=== PATIENT | male | born 1935 | race Caucasian/White ===

== ENCOUNTER → 2017-05-27 | Outpatient (CLI) | payer MEDICARE ==
[~2017-05-27] MED LIST: ALB17R IH; ALB17R INH; ALB6.7R INH; ALBU1.257 IH; ALBU5SOL17 NEB; ALBU8.5H IH; ALPR-459 PO; AMIT-104 PO; AMLO-96 PO; ASMANEXPT IH; ASP81EC PO; ASPI-1441 PO; ASPI-1471 PO; ASPI-816 PO; ASPI81TA94 PO; ATOR20TA22 PO; ATOR20TA65 PO; AZE137NAPT NS; AZEL205.2 NS; AZIT-17 PO; AZIT-18 PO; AZIT500T47 PO; BENZ100C4 PO; BENZ200C15 PO; BIS10S PR; BUDE0.256 IH; BUDE0.5A6 IH; BUDE10.2 IH; BUDE10.2 INH; CEFU500T50 PO; CELE-1 PO; CET10 PO; CHOL500045 PO; CIP500 PO; CLAR-1 PO; CYCL1DRO6 OP; DAR100 PO; DIA5 PO; DIP25 PO; DIPH-618 PO; DOXY-179 PO; ELET20TA2 PO; ENO40I SQ; ENOX30DI4 SQ; ESOM20CA31 PO; FAM20 PO; FEXO1TAB39 PO; FIBER TABLET; FIO PO; FLU IM; FLU180SY9 IM; FLU44R IH; FLU45SYR17 IM; FLU45SYR25 IM ONLY; FLUT16SP19 NS; FLUT16SP20 NS; FORM20VI IH; GABA-549 PO; GING1POW MC; GING500C3 PO; GLUC-125 PO; GLUC-198 PO; GLUC-283 PO; GUAI120L3 PO; GUAI400T18 PO; GUALA600 PO; HYDR-385 PO; HYDR1TAB PO; IBU600 PO; IPRA0.2S31 IH; IPRA0.2S8 IH; IPRA15SP7 NS; IPRA3AMP21 IH; IPRATROPIUM NEB; KETO5DRO50 OP; L.AC1CAP6; LEV500 PO; LEVO500T PO; LEVO5PT PO; LINA290C PO; LISI-353 PO; LOR7.5/325 PO; LUTE20TA PO; MEC25 PO; MECL-205 PO; MECL25TA9 PO; MELO-207 PO; METO-733 PO; METR-160 PO; MOM PO; MON10 PO; MONT10TA PO; MONT10TA4 PO; MUCINEX PO; MULT-1335 PO; MULT-898 PO; MULT1CAP59 PO; NIA500 PO; NIAC1TBM PO; NIAC500C17 PO; NYST15CR33 TP; OASIS EYE; OASIS OP; OLME40TA17 PO; OMEG-11 PO; OMEG500C5 PO; OMEP40CA79 PO; OND4 PO; OXYC-865 PO; OXYGENHOME INH; PAN40 PO; PANT40TA65 PO; PER PO; PHENA200 PO; PNEU0.5D3 IM; POLY17PO25 PO; PRE20 PO; PRED-1 PO; PRED20TA6 PO; PRO25 PO; PRO500 PO; PROB500T31 PO; PSYL0.5235 PO; SAW160CA24 PO; SAW450CA3 PO; SPIR25TA78 PO; TAM4 PO; TAMS0.4C70 PO; TAMS0.4C76 PO; TEARS; TIO18R; TIO18R IH; TIO18R INH; TRAZ-156 PO; TRIA1CAP PO; VALS320T12 PO; VARD20TA31 PO; VITA-192 PO; VITAMIN E PO; WAR5 PO; WASH; [UNRECOGNIZED DRUG - CODE] NEB; [UNRECOGNIZED DRUG - CODE] OP; [UNRECOGNIZED DRUG - CODE] PO; [UNRECOGNIZED DRUG - CODE] PO; [UNRECOGNIZED DRUG - OTHER] NEB; [UNRECOGNIZED DRUG - OTHER] OP
[2017-05-27 09:03] LABS: PLATELET COUNT, AUTOMATED 144 K/uL (150-450)
--- NOTE | 2017-05-27 10:05 | EKG ---
FACILITY: [facility] PATIENT NAME: GRETTA BEGUM : [id number] MR: [id number] V: [id number] EXAM DATE: ORDERING PHYSICIAN: BRIANA BRYANT TECHNOLOGIST: CURTIS Test Reason : CHEST PAIN Blood Pressure : / mmHG Vent. Rate : 061 BPM Atrial Rate : 061 BPM P-R Int : 236 ms QRS Dur : 148 ms QT Int : 458 ms P-R-T Axes : 049 026 034 degrees QTc Int : 461 ms Sinus rhythm with 1st degree AV block with premature atrial complexes Right bundle branch block Abnormal ECG When compared with ECG of 25-FEB-2017 09:00, premature atrial complexes are now present Referred By: ANNETTE Confirmed By:
--- NOTE | 2017-05-27 10:12 | RADIOLOGY IMAGING REPORT ---
FACILITY: [facility] PATIENT NAME: Rylan Villasenor : 1935 MR: [id number] V: [id number] EXAM DATE: ORDERING PHYSICIAN: BRIANA BRYANT TECHNOLOGIST: Location: [facility] Patient: Rylan Villasenor : 1935 Visit/Account:[id number] Date of Sevice: 05/27/2017 Exam type: CHEST PA AND LAT History: Chest pain since Friday, cough, trouble breathing, asthma Comparison: February 25, 2017. Findings: The lungs are free of acute effusions, infiltrates or edema. There is no evidence of a pneumothorax or pneumomediastinum. There is mild right apical pleural thickening unchanged. The cardiac silhouet te is normal in size. There are spondylotic changes of the thoracic spine similar to the prior study . IMPRESSION: 1. No acute cardiopulmonary process seen Report Dictated By: Earlene Zarco MD at 05/27/2017 10:06 AM Report E-Signed By: Earlene Zarco MD at 05/27/2017 10:07 AM WSN:[email or web address]
== END ==
LOC: RESP 08:35
PROVIDERS: ATTEND Internal Medicine
DX: R07.9 Chest pain, unspecified (principal); I10 Essential (primary) hypertension; J45.909 Unspecified asthma, uncomplicated; R94.31 Abnormal electrocardiogram [ECG] [EKG]
CPT/HCPCS: 36415; 71046; 82040; 82247; 82310; 82374; 82435; 82565; 82947; 84075; 84132; 84155; 84295; 84450; 84460; 84484; 84520; 85025; 85651; 86140

== ENCOUNTER → 2017-06-17 | Outpatient (CLI) | payer MEDICARE ==
[~2017-06-17] MED LIST changes: +AZEL23SP NS; +REGADENOSON 0.4 MG/5 ML SYR ONE
--- NOTE | 2017-06-17 15:50 | RADIOLOGY IMAGING REPORT ---
FACILITY: [facility] PATIENT NAME: Rylan Villasenor : 1935 MR: [id number] V: [id number] EXAM DATE: ORDERING PHYSICIAN: BRIANA BRYANT TECHNOLOGIST: Location: [facility] [place] Patient: Rylan Villasenor : 1935 Visit/Account:[id number] Date of Sevice: 06/17/2017 EXAMINATION: Single isotope SPECT imaging with regadenoson infusion and gated SPECT imaging. DATE OF EXAMINATION: 06/17/2017. DATE OF INTERPRETATION: 06/17/2017. REQUESTING PHYSICIAN: BRIANA BRYANT. INDICATION: The patient is a 81-year-old male evaluated for chest pain. PROCEDURE: After informed consent the patient received an intravenous injection of 14.4 mCi of Tc-99 m sestamibi followed at an appropriate time interval by rest imaging. The patient then subsequently received an intravenous infusion of 0.4 mg of regadenoson per protocol without complication. Resting heart rate was 59 bpm with a peak heart rate of 69 bpm. Blood pressure at rest was 160 / 73 and fol lowing infusion was 164 / 70. Baseline EKG demonstrates sinus rhythm with right bundle branch block. There were no EKG changes of ischemia following infusion. Symptoms were nonspecific. The patient then received an intravenous injection of 31.5 mCi of Tc-99m sestamibi followed by stress imaging. RAW DATA: Examination of the summed raw data revealed a fair quality study. MYOCARDIAL PERFUSION: The tomographic images demonstrate normal perfusion rest and stress. GATED IMAGES: The gated images demonstrate normal regional wall motion and thickening, LVEF 70%. IMPRESSION: 1. Nondiagnostic Lexiscan stress ECG 2. Normal myocardial perfusion scan. 3. Normal LV systolic function; LVEF 70%. Report Dictated By: Darian Payne MD at 06/17/2017 3:43 PM Report E-Signed By: Darian Payne MD at 06/17/2017 3:46 PM WSN:[id number]
== END ==
LOC: NUC 01:14
PROVIDERS: ATTEND Internal Medicine
DX: I45.19 Other right bundle-branch block (principal); I44.0 Atrioventricular block, first degree; I49.3 Ventricular premature depolarization
CPT/HCPCS: 78452; 93017; A9500; J2785

== ENCOUNTER → 2017-12-02 | Outpatient (CLI) | payer MEDICARE ==
[~2017-12-02] MED LIST changes: -ASPI-816 PO; +ASPI-870 PO; +AZIT-1 PO; +BUDE10.25 IH; -REGADENOSON 0.4 MG/5 ML SYR ONE; -SPIR25TA78 PO; +SPIR25TA80 PO; -TRAZ-156 PO; +TRAZ50TA34 PO
[2017-12-02 09:00] LABS: PLATELET COUNT, AUTOMATED 136 K/uL (150-450)
[2017-12-02 09:50] LABS: LDL CHOLESTEROL 55 mg/dl
== END ==
LOC: LAB 08:44
PROVIDERS: ATTEND Internal Medicine
DX: E78.00 Pure hypercholesterolemia, unspecified (principal); I10 Essential (primary) hypertension; J45.909 Unspecified asthma, uncomplicated; G47.33 Obstructive sleep apnea (adult) (pediatric); R79.89 Other specified abnormal findings of blood chemistry; C61 Malignant neoplasm of prostate
CPT/HCPCS: 36415; 81001; 82040; 82247; 82306; 82310; 82374; 82435; 82465; 82565; 82947; 83718; 84075; 84132; 84153; 84155; 84295; 84443; 84450; 84460; 84478; 84520; 85025

== ENCOUNTER → 2017-12-05 | Outpatient (CLI) | payer MEDICARE | LOC: LAB 13:04 | PROVIDERS: ATTEND Internal Medicine | DX: E83.52 Hypercalcemia (principal) | CPT/HCPCS: 36415; 83970 ==

== ENCOUNTER → 2018-01-27 | Outpatient (CLI) | payer MEDICARE ==
[~2018-01-27] MED LIST changes: +AMLO-111 PO; -AMLO-96 PO; +FLU180SY11 IM
[2018-01-27 09:10] LABS: PLATELET COUNT, AUTOMATED 142 K/uL (150-450)
== END ==
LOC: LAB 08:52
PROVIDERS: ATTEND Internal Medicine Pulmonary Disease
DX: J45.909 Unspecified asthma, uncomplicated (principal)
CPT/HCPCS: 36415; 82785; 85025

== ENCOUNTER → 2018-02-04 | Outpatient (CLI) | payer MEDICARE ==
[~2018-02-04] MED LIST changes: +METH4TAB66 PO
--- NOTE | 2018-02-04 16:23 | EKG ---
[place] [facility] [place]IENT NAME: GRETTA BEGUM : [id number] MR: [id number] V: [id number] EXAM DATE: ORDERING PHYSICIAN: BRIANA BRYANT TECHNOLOGIST: ANITA Test Reason : CHEST PAIN Blood Pressure : / mmHG Vent. Rate : 059 BPM Atrial Rate : 059 BPM P-R Int : 222 ms QRS Dur : 150 ms QT Int : 460 ms P-R-T Axes : 043 030 043 degrees QTc Int : 455 ms Sinus bradycardia with 1st degree AV block with premature atrial complexes Right bundle branch block Abnormal ECG When compared with ECG of 27-MAY-2017 08:30, No significant change was found Confirmed by BRIANA BRYANT ([id number]) on 02/05/2018 9:10:50 AM Referred By: CLAYTON Confirmed By:BRIANA BRYANT
== END ==
LOC: LAB 15:07
PROVIDERS: ATTEND Internal Medicine
DX: I44.0 Atrioventricular block, first degree (principal); R94.31 Abnormal electrocardiogram [ECG] [EKG]; R07.82 Intercostal pain

== ENCOUNTER 2018-03-10 08:46 | Emergency (ER) | payer MEDICARE ==
[~2018-03-10 08:46] MED LIST changes: -METR-160 PO; +METR500T54 PO
[2018-03-10 09:36] LABS: PLATELET COUNT, AUTOMATED 141 K/uL (150-450)
--- NOTE | 2018-03-10 09:39 | ER Report ---
History and Physical Time Seen By MD: 09:00 Hx. of Stated Complaint: CHST PAIN HPI/ROS CHIEF COMPLAINT: Shortness of breath and chest pain HISTORY OF PRESENT ILLNESS: Patient is a 82-year-old male with history of COPD, on CPAP at night, on intermittent O2 2 L nasal cannula at home. Has been using O2 and CPAP increasingly the past 2 days. He presented to his primary doctor for an allergy shot and reported that he has had some chest pain and was sent here for further evaluation. Patient reports that these symptoms are similar to those which he was evaluated for between 3 and 4 weeks ago, at which time he was thought to have COPD exacerbation, was treated with prednisone. Symptoms initially improved but of worsened over the past 2 days. Symptoms are similar to his prior COPD exacerbations. Patient has cough with clear sputum without change in color. He has some chills without fever. Chest pain radiates down the left chest under left breast. It last for seconds at a time, never more than 30 seconds. It is not specifically associated with the shortness of breath though patient does note it sometimes when he is on CPAP. Patient notes that she well shortness of breath is worse on exertion and lying back, the chest pain is not associated with exertion or recumbency. Patient has used his albuterol increasingly over the past 2 days with some relief. Patient denies ongoing tobacco use and quit 40 years ago. Incomplete review of systems patient also notes proximal bilateral thigh pain worse on right than left that has been intermittent and ongoing. He denies recent travel, leg swelling, history of DVT. REVIEW OF SYSTEMS: Constitutional: above Eyes: No discharge. ENT: No sore throat. Cardiovascular: above Respiratory: above Gastrointestinal: No abdominal pain, no vomiting. Genitourinary: no change in urination Musculoskeletal: No back pain. Skin: No rashes. Neurological: No headache. Remainder of the 14 system rev: Yes Allergies: Coded Allergies: Penicillins (Verified Allergy, Mild, PASSED OUT-50-6O YRS AGO, 03/10/18) Home Meds Active Scripts Albuterol Sulfate 90 Mcg/Act (PROAIR HFA 90 MCG/ACT) 8.5 Gm Hfa.aer.ad, 1 VIAL IH DAILY PRN for SHORTNESS OF BREATH for 90 Days, #90 INHALER 3 Refills Prov:SERGIO MONTE MD 02/13/18 Montelukast Sodium (SINGULAIR) 10 Mg Tablet, 1 TAB PO QDAY, #90 TAB 4 Refills Prov:BRIANA KOHLI MD 01/15/18 Pantoprazole Sodium (PANTOPRAZOLE SODIUM) 40 Mg Tablet.dr, 1 TAB PO QDAY, #90 TAB.SR 4 Refills Prov:BRIANA KOHLI MD 01/01/18 Budesonide (BUDESONIDE) 0.5 Mg/2 Ml Ampul.neb, 0.5 MG IH BID, #180 ML 3 Refills Prov:BRIANA KOHLI MD 11/26/17 Formoterol Fumarate (PERFOROMIST) 20 Mcg/2 Ml Vial.neb, 1 INH IH BID, #180 VIAL 3 Refills Prov:BRIANA KOHLI MD 11/26/17 Hydrocodone Bit/Acetaminophen (HYDROCODON-ACETAMINOPHEN 5-325) 1 Each Tablet, 1 TAB PO TID PRN for pain, #90 TAB 0 Refills REFILL 02/10/2018 Prov:BRIANA KOHLI MD 11/26/17 Budesonide/Formoterol Fumarate (SYMBICORT 80-4.5 MCG INHALER) 10.2 Gm Hfa.aer.ad, 2 PUFF IH BID, #1 INHALATION 2 Refills Prov:BRIANA KOHLI MD 11/11/17 Meclizine Hcl (MECLIZINE HCL) 25 Mg Tablet, 1 TAB PO BID PRN for dizziness, #180 TAB 3 Refills Prov:BRIANA KOHLI MD 10/29/17 Trazodone Hcl (TRAZODONE HCL) 50 Mg Tablet, 1-2 TAB PO QHS PRN for difficulty sleeping, #30 TAB 6 Refills Prov:BRIANA KOHLI MD 10/06/17 Atorvastatin Calcium (ATORVASTATIN CALCIUM) 20 Mg Tablet, 1 TAB PO QDAY, #90 TAB 4 Refills Prov:BRIANA KOHLI MD 08/20/17 Azelastine/Fluticasone (DYMISTA NASAL SPRAY) 23 Gm [place].pump, 1-2 SPRAY NS QDAY, #3 BOTTLE 5 Refills Prov:BRIANA KOHLI MD 06/04/17 Lisinopril/Hydrochlorothiazide (LISINOPRIL-HCTZ 20-12.5 MG TAB) 1 Each Tablet, 1 EACH PO BID, #180 TAB 3 Refills Prov:BRIANA KOHLI MD 04/02/17 Tamsulosin Hcl (TAMSULOSIN HCL) 0.4 Mg Cap.er.24h, 1 CAP PO BID, #180 CAP 1 Refill Prov:BRIANA KOHLI MD 03/12/17 Tiotropium [place] (SPIRIVA) 18 Mcg/Cap Inh, 1 PUFF INH DAILY, #3 INH 4 Refills Prov:BRIANA KOHLI MD 07/24/16 Oxygen (OXYGEN) Inha, 2 L INH QDAY, #2 L Prov:AVIVA MOREIRA DNP, OBIEE OBIA SOLUTION ARCHITECT-BC 07/03/15 Fluticasone Prop 50 Mcg Ns (FLONASE 50 MCG NS) 16 Gm [place].susp, 2 SPRAYS NS QDAY, #1 CON 6 Refills Prov:WALT ROYAL MD 07/15/14 Reported Medications Polyethylene Glycol 3350 (MIRALAX) 17 Gm Powd.pack, 17 GM PO QDAY PRN for CONSTIPATION, PKT 04/22/17 Linaclotide (LINZESS) 290 Mcg Capsule, 290 MCG PO PRN, CAPSULE 04/10/17 Lutein (LUTEIN) 20 Mg Tablet, 20 MG PO DAILY 05/08/15 Psyllium Husk (FIBER) 0.52 Gm Capsule, 0.52 GM PO TID, CAPSULE 05/08/15 Aspirin (ASPIRIN) 81 Mg Tab.chew, 81 MG PO QDAY, TAB.CHEW 05/08/15 Cyclosporine (RESTASIS) 1 Each [place], 1 EACH OP DAILY for dry eyes 12/30/13 Discontinued Scripts Methylprednisolone (METHYLPREDNISOLONE) 4 Mg Tab.ds.pk, 4 MG PO DIRECTED, #1 DOSE-PACK Prov:BRIANA KOHLI MD 02/04/18 Reviewed Nurses Notes: Yes Old Medical Records Reviewed: Yes Hx Smoking: No (40 YRS-1 PPD, QUIT IN 1991) Smoking Status: Former Smoker Hx Substance Use Disorder: No Hx Alcohol Use: No (NONE FOR 15 YRS) Constitutional Vital Sign - Last 24 Hours 03/10/18 03/10/18 03/10/18 03/10/18 08:46 08:51 08:54 09:00 Temp 97.8 Pulse 63 58 Resp 16 B/P (MAP) 172/87 (115) 172/87 153/77 (102) Pulse Ox 90 O2 Delivery Room Air 03/10/18 03/10/18 03/10/18 03/10/18 09:15 09:16 09:30 09:46 Pulse 61 58 Resp 15 16 B/P (MAP) 173/84 (113) 164/89 (114) Pulse Ox 90 89 03/10/18 03/10/18 10:00 10:37 Pulse 54 Resp 14 B/P (MAP) 155/73 (100) Physical Exam General Appearance: [The patient is alert, has no immediate need for airway protection and no signs of toxicity.] [ ] Pupils equal and round no pallor or injection. ENT, Mouth: Mucous membranes are moist. Respiratory: end expiratory wheeze, otherwise CTAB Cardiovascular: Regular rate and rhythm. no m/r/g Gastrointestinal: Abdomen is soft and non tender, no masses, bowel sounds normal. Neurological: alert, oriented, moves all ext Skin: Warm and dry, no rashes. Musculoskeletal: Extremities with bilateral proxmial mid thigh mild ttp, R > L nonswollen and have full range of motion. DIFFERENTIAL DIAGNOSIS: After history and physical exam differential diagnosis was considered for ACS, VTE, COPD, pneumonia, aortic dissection, or other emergent etiology. Medical Decision Making Data Points Result Diagram: 03/10/18 0853 03/10/18 0853 Laboratory Hematology Test 03/10/18 08:53 Red Blood Count 5.04 M/uL (4.00-5.60) Mean Corpuscular Volume 93.8 fL (80.0-96.0) Mean Corpuscular Hemoglobin 32.7 pg (26.0-33.0) Mean Corpuscular Hemoglobin Concent 34.8 g/dL (32.0-36.0) Red Cell Distribution Width 14.0 % (11.5-14.5) Mean Platelet Volume 9.7 fL (7.2-11.1) Neutrophils (%) (Auto) 66.1 % (39.4-72.5) Lymphocytes (%) (Auto) 21.0 % (17.6-49.6) Monocytes (%) (Auto) 9.5 % (4.1-12.4) Eosinophils (%) (Auto) 2.5 % (0.4-6.7) Basophils (%) (Auto) 0.9 % (0.3-1.4) Nucleated RBC Relative Count (auto) 0.1 /100WBC Neutrophils # (Auto) 3.9 K/uL (2.0-7.4) Lymphocytes # (Auto) 1.2 K/uL (1.3-3.6) Monocytes # (Auto) 0.6 K/uL (0.3-1.0) Eosinophils # (Auto) 0.1 K/uL (0.0-0.5) Basophils # (Auto) 0.1 K/uL (0.0-0.1) Nucleated RBC Absolute Count (auto) 0.00 K/uL Sodium Level 141 mmol/L (137-145) Potassium Level 4.1 mmol/L (3.5-5.0) Chloride Level 101 mmol/L (98-107) Carbon Dioxide Level 28 mmol/L (22-30) Blood Urea Nitrogen 20 mg/dl (9-21) Creatinine 0.90 mg/dl (0.66-1.25) Glomerular Filtration Rate Calc > 60.0 Random Glucose 108 mg/dl (75-110) Calcium Level 10.4 mg/dl (8.4-10.2) Total Bilirubin 1.0 mg/dl (0.2-1.3) Aspartate Amino Transf (AST/SGOT) 39 U/L (0-35) Alanine Aminotransferase (ALT/SGPT) 38 U/L (0-56) Alkaline Phosphatase 51 U/L (0-126) Troponin I < 0.012 ng/ml Total Protein 8.0 g/dl (6.3-8.2) Albumin 4.5 g/dl (3.5-5.0) Lipase 118 U/L (23-300) Chemistry Test 03/10/18 08:53 White Blood Count 5.9 k/uL (4.5-11.0) Red Blood Count 5.04 M/uL (4.00-5.60) Hemoglobin 16.5 g/dL (14.0-18.0) Hematocrit 47.3 % (42.0-52.0) Mean Corpuscular Volume 93.8 fL (80.0-96.0) Mean Corpuscular Hemoglobin 32.7 pg (26.0-33.0) Mean Corpuscular Hemoglobin Concent 34.8 g/dL (32.0-36.0) Red Cell Distribution Width 14.0 % (11.5-14.5) Platelet Count 141 K/uL (150-450) Mean Platelet Volume 9.7 fL (7.2-11.1) Neutrophils (%) (Auto) 66.1 % (39.4-72.5) Lymphocytes (%) (Auto) 21.0 % (17.6-49.6) Monocytes (%) (Auto) 9.5 % (4.1-12.4) Eosinophils (%) (Auto) 2.5 % (0.4-6.7) Basophils (%) (Auto) 0.9 % (0.3-1.4) Nucleated RBC Relative Count (auto) 0.1 /100WBC Neutrophils # (Auto) 3.9 K/uL (2.0-7.4) Lymphocytes # (Auto) 1.2 K/uL (1.3-3.6) Monocytes # (Auto) 0.6 K/uL (0.3-1.0) Eosinophils # (Auto) 0.1 K/uL (0.0-0.5) Basophils # (Auto) 0.1 K/uL (0.0-0.1) Nucleated RBC Absolute Count (auto) 0.00 K/uL Glomerular Filtration Rate Calc > 60.0 Calcium Level 10.4 mg/dl (8.4-10.2) Total Bilirubin 1.0 mg/dl (0.2-1.3) Aspartate Amino Transf (AST/SGOT) 39 U/L (0-35) Alanine Aminotransferase (ALT/SGPT) 38 U/L (0-56) Alkaline Phosphatase 51 U/L (0-126) Troponin I < 0.012 ng/ml Total Protein 8.0 g/dl (6.3-8.2) Albumin 4.5 g/dl (3.5-5.0) Lipase 118 U/L (23-300) EKG/Imaging EKG Interpretation 12 lead EKG: Rhythm: normal sinus rhythm - rate 59 [place]: normal QRS: RBBB ST segments: normal No change from 02/05. No STEMI Monitor Interpretation: Normal Sinus Rhythm ED Course/Re-evaluation ED Course Patient presents with shortness of breath that he states is similar prior COPD exacerbations. Was sent here from his primary doctor who, when I contacted, stated that he was too busy and could not see patient this morning when patient noted he had chest pain while getting assessed for an allergy shot. Patient's chest pain is similar prior events, is nonexertional and does not last more than 30 seconds. Low pretest probably for ACS today and EKG and troponin unremarka ble. Patient improved significant after neb in ED. He was last placed on a steroid burst. At this point we'll place him on a steroid taper. Considered antibiotics but no change in sputum and no other signs of infection. After ED evaluation patient feels significantly improved and comfortable to go home. Of note his 90% O2 sat on room air is likely his baseline. Decision to Disposition Date: Mar 10, 2018 Decision to Disposition Time: 10:54 Depart Departure Latest Vital Signs Vital Signs Date Time Temp Pulse Resp B/P (MAP) Pulse Ox O2 Delivery O2 Flow Rate FiO2 03/10/18 10:37 54 14 03/10/18 10:00 155/73 (100) 03/10/18 09:46 89 03/10/18 08:54 97.8 Room Air Impression: Primary Impression: COPD exacerbation Condition: Improved Disposition: HOME OR SELF-CARE Referrals: BRIANA KOHLI MD (PCP) 1 Day New Scripts Prednisone 10 Mg Tab (PREDNISONE 10 MG TAB) 10 Mg Tab.ds.pk 10 MG PO DAILY for 12 Days, #30 TAB Take 4 tabs for 3 days, then 3 tabs for 3 days, then 2 tabs for 3 days, then 1 tab for 3 days Prov: MUKESH TSE MD 03/10/18 Patient Instructions: COPD (Chronic Obstructive Pulmonary Disease) (ED) Additional Instructions: Please return immediately for worsening symptoms or any concerns. Dr. Kohli would like you to call his office tomorrow to arrange follow up. MUKESH TSE MD Mar 10, 2018 09:39
--- NOTE | 2018-03-10 10:01 | EKG ---
FACILITY: [facility] - [place] PATIENT NAME: GRETTA BEGUM : [id number] MR: [id number] V: [id number] EXAM DATE: ORDERING PHYSICIAN: MUKESH TSE TECHNOLOGIST: NAIN Test Reason : CP Blood Pressure : / mmHG Vent. Rate : 059 BPM Atrial Rate : 059 BPM P-R Int : 228 ms QRS Dur : 150 ms QT Int : 462 ms P-R-T Axes : 043 016 030 degrees QTc Int : 457 ms Sinus bradycardia with 1st degree AV block Right bundle branch block Abnormal ECG When compared with ECG of 04-FEB-2018 14:13, premature atrial complexes are no longer present Confirmed by ANGEL FERRERA ([id number]) on 03/10/2018 6:02:39 PM Referred By: DEDRICK Confirmed By:ANGEL FERRERA
--- NOTE | 2018-03-10 10:05 | RADIOLOGY IMAGING REPORT ---
FACILITY: [facility] PATIENT NAME: Rylan Villasenor : 1935 MR: [id number] V: [id number] EXAM DATE: ORDERING PHYSICIAN: MUKESH TSE TECHNOLOGIST: Location: [facility] [place] Patient: Rylan Villasenor : 1935 Visit/Account:[id number] Date of Sevice: 03/10/2018 CHEST PA AND LAT INDICATION: shortness of breath COMPARISON: May 27, 2017 FINDINGS: Heart size within normal limits. There is no focal infiltrate or lobar consolidation. There is no pneumothorax or pleural effusion. IMPRESSION: 1. No acute cardiopulmonary process. Report Dictated By: Ariel Mckeon at 03/10/2018 10:01 AM Report E-Signed By: Ariel Mckeon at 03/10/2018 10:02 AM WSN:[email or web address]
[2018-03-10] MEDS ORDERED: ALBUTEROL/IPRATROPIUM 3 ML NEB NEB ONE (10:25)
[2018-03-10] MEDS ORDERED: PRED-420 PO (10:59)
[2018-03-10 11:00] VITALS: BP 140/79
--- NOTE | 2018-03-10 11:01 | RADIOLOGY IMAGING REPORT ---
[place] [facility] [place] Rylan Villasenor : 1935 MR: [id number] V: [id number] EXAM DATE: ORDERING PHYSICIAN: MUKESH TSE TECHNOLOGIST: Location: [facility] Patient: Rylan Villasenor : 1935 Visit/Account:[id number] Date of Sevice: 03/10/2018 Bilateral lower extremity duplex venous ultrasound Indication: Leg swelling Comparison: None Available Findings: Duplex Doppler and color flow imaging was performed. The bilateral common femoral, femoral , and popliteal veins are all patent and compressible with normal Doppler wave forms. There are norm al responses to augmentation. The proximal greater saphenous veins are also normal. Impression: 1. No evidence of deep venous thrombosis of the bilateral lower extremities. Report Dictated By: Ariel Mckeon at 03/10/2018 10:55 AM Report E-Signed By: Ariel Mckeon at 03/10/2018 10:56 AM WSN:[email or web address]
== END 2018-03-10 11:15 | disposition home or self-care (01) ==
LOC: ER 09:11
DX: J44.1 Chronic obstructive pulmonary disease with (acute) exacerbation (principal); Z87.891 Personal history of nicotine dependence; I44.0 Atrioventricular block, first degree; R94.31 Abnormal electrocardiogram [ECG] [EKG]; I45.10 Unspecified right bundle-branch block
CPT/HCPCS: 71046; 83690; 84484; 85025; 93005; 93970; 94640; 99284; J7620; 82040; 82247; 82310; 82374; 82435; 82565; 82947; 84075; 84132; 84155; 84295; 84450; 84460; 84520

== ENCOUNTER 2018-04-29 07:42 | Outpatient (RCR) | payer MEDICARE ==
[2018-04-28 09:24] LABS: PLATELET COUNT, AUTOMATED 140 K/uL (150-450)
--- NOTE | 2018-04-28 09:30 | EKG ---
[place] [facility] [place] GRETTA BEGUM : [id number] MR: [id number] V: [id number] EXAM DATE: ORDERING PHYSICIAN: BRIANA BRYANT TECHNOLOGIST: KARI Test Reason : CHESTPAIN Blood Pressure : / mmHG Vent. Rate : 057 BPM Atrial Rate : 057 BPM P-R Int : 250 ms QRS Dur : 152 ms QT Int : 450 ms P-R-T Axes : 063 033 028 degrees QTc Int : 438 ms Sinus bradycardia with 1st degree AV block with premature atrial complexes Right bundle branch block Abnormal ECG When compared with ECG of 10-MAR-2018 09:03, premature atrial complexes are now present Confirmed by BRIANA BRYANT ([id number]) on 04/28/2018 4:34:45 PM Referred By: CLAYTON Confirmed By:BRIANA BRYANT
[~2018-04-29 07:42] MED LIST changes: -AMLO-111 PO; +AMLO-125 PO; +LEVO750T27 PO; +LISI20TA29 PO; +METR500T15 PO; -METR500T54 PO; +PRED-420 PO
--- NOTE | 2018-04-29 17:27 | RADIOLOGY IMAGING REPORT ---
[place] [facility] [place] NAME: Rylan Villasenor : 1935 MR: [id number] V: [id number] EXAM DATE: ORDERING PHYSICIAN: BRIANA BRYANT TECHNOLOGIST: Location: [facility] [place] Patient: Rylan Villasenor : 1935 Visit/Account:[id number] Date of Sevice: 04/29/2018 CT CTA CHEST W & W/O CON HISTORY: Chest pain ADDITIONAL HISTORY: Cough, shortness of breath, history of smoking TECHNIQUE: CTA chest with intravenous contrast. Axial imaging acquired following administration of IV contrast timed for maximum opacification of the pulmonary arterial vasculature. Slab 3-D MIP romain nstructed images were also created for further evaluation and interpretation. Reconstruction of the [facility] data set includes multiplanar 2-D in the sagittal and coronal planes and 3-D reconstructed michela nal slab MIP series. 3-D images were created by the technologist.Dose Lowering Technique One of the following dose optimization techniques was utilized in the performance of this exam: Autom ated exposure control; adjustment of the mA and/or kV according to the patient's size; or use of an i terative reconstruction technique. Specific details can be referenced in the facility's radiology C T exam operational policy. CONTRAST: 75 mL Isovue-370 COMPARISON: September 08, 2008 FINDINGS: Lungs/pleura: There is a small amount of pleural parenchymal scarring in the pulmonary apices that h as remained stable Heart/vessels: There mild to moderate atherosclerotic calcifications of the thoracic aorta and branc h vessels including the coronary arteries. There is no evidence of pulmonary emboli Mediastinum/lymph nodes: Negative. 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
[2018-05-04] MEDS ORDERED: ALBU2.5V36 INH (13:30)
[2018-05-09] MEDS ORDERED: PRED20TA6 PO (14:33)
[2018-05-12] MEDS ORDERED: IPRA3AMP10 IH (09:00)
== END 2018-04-29 18:00 | disposition home or self-care (01) ==
LOC: EDSTATUS 07:42 → LAB 07:42
PROVIDERS: ATTEND Internal Medicine
DX: I36.1 Nonrheumatic tricuspid (valve) insufficiency (principal); I51.7 Cardiomegaly; R94.31 Abnormal electrocardiogram [ECG] [EKG]
CPT/HCPCS: 36415; 71275; 83735; 84443; 85025; 85379; C8929; Q9957; 82040; 82247; 82310; 82374; 82435; 82565; 82947; 84075; 84132; 84155; 84295; 84450; 84460; 84520; 93306

== ENCOUNTER → 2018-05-14 | Outpatient (CLI) | payer MEDICARE ==
[~2018-05-14] MED LIST changes: +ALBU2.5V36 INH; +IPRA3AMP10 IH
== END ==
LOC: RESP 00:57
PROVIDERS: ATTEND Internal Medicine Pulmonary Disease
DX: J98.4 Other disorders of lung (principal)
CPT/HCPCS: 94060; 94726; 94729

== ENCOUNTER 2018-06-08 17:38 | Emergency (ER) | payer MEDICARE ==
--- NOTE | 2018-06-08 17:43 | ER Report ---
History and Physical Time Seen By MD: 17:43 HPI/ROS CHIEF COMPLAINT: Chest pressure HISTORY OF PRESENT ILLNESS: [id number] male who presents emergency department for chest pressure. Patient states at 11:00 this morning while laying in bed he developed left-sided chest pressure, since then he developed aches, chills, nausea and vomiting, diarrhea. His had similar symptoms however she is resolving. Patient is also on continuous oxygen for COPD. No rashes. No headaches. Denies sore throat. REVIEW OF SYSTEMS: Constitutional: As above. Eyes: No discharge. ENT: No sore throat. Cardiovascular: As above. Respiratory: As above. Gastrointestinal: No abdominal pain, no vomiting. Genitourinary: No hematuria. Musculoskeletal: No back pain. Skin: No rashes. Neurological: No headache. Allergies: Coded Allergies: Penicillins (Verified Allergy, Mild, PASSED OUT-50-6O YRS AGO, 05/09/18) Home Meds Active Scripts Prednisone (PREDNISONE) 20 Mg Tablet, 40 MG PO QDAY, #17 TAB 40mg once a day for 4 days. 30mg once a day for 3 days. 20mg once a day for 3 days. 10mg once a day for 2 days. Prov:ASHISH FULTON [employer] SUPERVISOR-BC 06/08/18 Albuterol Sulfate 90 Mcg/Act (PROAIR HFA 90 MCG/ACT) 8.5 Gm Hfa.aer.ad, 1 PUFF IH QID PRN for SHORTNESS OF BREATH for 90 Days, #1 INHALER 3 Refills Prov:BRIANA KOHLI MD 05/29/18 Albuterol Sulfate 0.083% (ALBUTEROL SULFATE 0.083%) 2.5 Mg/3 Ml Vial.neb, 2.5 MG INH QID PRN for DYSPNEA, #360 INH 3 Refills Prov:BRIANA KOHLI MD 05/18/18 Lisinopril (LISINOPRIL) 20 Mg Tablet, 20 MG PO BID, #180 TAB 3 Refills Prov:BRIANA KOHLI MD 04/28/18 Trazodone Hcl (TRAZODONE HCL) 50 Mg Tablet, 1-2 TAB PO QHS PRN for difficulty sleeping, #30 TAB 6 Refills Prov:BRIANA KOHLI MD 12/21/18 Hydrocodone Bit/Acetaminophen (HYDROCODON-ACETAMINOPHEN 5-325) 1 Each Tablet, 1 TAB PO TID PRN for pain, #90 TAB 0 Refills refill 05/25/2018 Prov:BRIANA KOHLI MD 03/23/18 Montelukast Sodium (SINGULAIR) 10 Mg Tablet, 1 TAB PO QDAY, #90 TAB 4 Refills Prov:BRIANA KOHLI MD 01/15/18 Pantoprazole Sodium (PANTOPRAZOLE SODIUM) 40 Mg Tablet.dr, 1 TAB PO QDAY, #90 TAB.SR 4 Refills Prov:BRIANA KOHLI MD 01/01/18 Budesonide (BUDESONIDE) 0.5 Mg/2 Ml Ampul.neb, 0.5 MG IH BID, #180 ML 3 Refills Prov:BRIANA KOHLI MD 11/26/17 Formoterol Fumarate (PERFOROMIST) 20 Mcg/2 Ml Vial.neb, 1 INH IH BID, #180 VIAL 3 Refills Prov:BRIANA KOHLI MD 11/26/17 Meclizine Hcl (MECLIZINE HCL) 25 Mg Tablet, 1 TAB PO BID PRN for dizziness, #180 TAB 3 Refills Prov:BRIANA KOHLI MD 10/29/17 Atorvastatin Calcium (ATORVASTATIN CALCIUM) 20 Mg Tablet, 1 TAB PO QDAY, #90 TAB 4 Refills Prov:BRIANA KOHLI MD 08/20/17 Azelastine/Fluticasone (DYMISTA NASAL SPRAY) 23 Gm Kegley.pump, 1-2 SPRAY NS QDAY, #3 BOTTLE 5 Refills Prov:BRIANA KOHLI MD 06/04/17 Tamsulosin Hcl (TAMSULOSIN HCL) 0.4 Mg Cap.er.24h, 1 CAP PO BID, #180 CAP 1 Refill Prov:BRIANA KOHLI MD 03/12/17 Tiotropium [place] (SPIRIVA) 18 Mcg/Cap Inh, 1 PUFF INH DAILY, #3 INH 4 Refills Prov:BRIANA KOHLI MD 07/24/16 Oxygen (OXYGEN) Inha, 2 L INH QDAY, #2 L Prov:AVIVA MOREIRA DNP, [employer] SUPERVISOR-BC 07/03/15 Fluticasone Prop 50 Mcg Ns (FLONASE 50 MCG NS) 16 Gm Kegley.susp, 2 SPRAYS NS QDAY, #1 CON 6 Refills Prov:WALT ROYAL MD 07/15/14 Reported Medications Prednisone (PREDNISONE) 20 Mg Tablet, 20 MG PO BID, TAB 05/09/18 Polyethylene Glycol 3350 (MIRALAX) 17 Gm Powd.pack, 17 GM PO QDAY PRN for CONSTIPATION, PKT 04/22/17 Linaclotide (LINZESS) 290 Mcg Capsule, 290 MCG PO PRN, CAPSULE 04/10/17 Lutein (LUTEIN) 20 Mg Tablet, 20 MG PO DAILY 05/08/15 Psyllium Husk (FIBER) 0.52 Gm Capsule, 0.52 GM PO TID, CAPSULE 05/08/15 Aspirin (ASPIRIN) 81 Mg Tab.chew, 81 MG PO QDAY, TAB.CHEW 05/08/15 Cyclosporine (RESTASIS) 1 Each Droperette, 1 EACH OP DAILY for dry eyes 12/30/13 Past Medical/Surgical History The patient has a past medical and surgical history of Mnire's disease, headaches, hypertension, hypercholesterolemia, 40+ year smoker, obstructive sleep apnea, uses CPAP, asthma, pneumonia, COPD, GERD, enlarged prostate, as a cancer with radiation, arthritis, back pain, wears glasses, dry eyes, laryngeal spasms, eczema, skin cancer excisions, colonoscopy, back surgery, right shoulder surgery, multiple knee surgeries, fusion, deviated septum, eyelid surgery. Reviewed Nurses Notes: Yes Hx Smoking: No (40 YRS-1 PPD, QUIT IN 1991) Smoking Status: Former Smoker Hx Substance Use Disorder: No Hx Alcohol Use: No (NONE FOR 15 YRS) Constitutional Vital Sign - Last 24 Hours 06/08/18 06/08/18 06/08/18 06/08/18 17:41 18:00 18:00 18:00 Temp 99.6 Pulse 93 77 79 Resp 22 18 0 B/P (MAP) 156/94 144/73 (96) Pulse Ox 91 97 95 O2 Delivery Nasal Cannula Nasal Cannula O2 Flow Rate 3.0 06/08/18 06/08/18 06/08/18 06/08/18 18:04 18:05 18:30 19:00 Pulse 78 80 81 Resp 20 20 12 B/P (MAP) 139/78 (98) Pulse Ox 95 94 O2 Flow Rate 3.0 06/08/18 06/08/18 06/08/18 06/08/18 19:30 19:30 19:30 19:36 Pulse 80 81 80 Resp 20 15 20 Pulse Ox 95 94 O2 Delivery Nasal Cannula O2 Flow Rate 3.0 Physical Exam General Appearance: The patient is alert, has no immediate need for airway protection and no signs of toxicity, appears uncomfortable. Eyes: Pupils equal and round no pallor or injection. ENT, Mouth: Mucous membranes are dry. Respiratory: Lung sounds diminished throughout, no retractions. Cardiovascular: Regular rate and rhythm, very distant heart sounds, no murmurs, clicks or rubs. Gastrointestinal: Abdomen is round, soft and non tender, no masses, bowel sounds normal. Neurological: Alert and oriented 4. Moving all extremities. Following all commands. No focal neuro deficits. Skin: Warm and dry, no rashes. Musculoskeletal: Neck is supple non tender. Extremities are nontender, nonswollen and have full range of motion. DIFFERENTIAL DIAGNOSIS: After history and physical exam differential diagnosis was considered for shortness of breath including but not limited to pulmonary infectious process, COPD, asthma, pulmonary embolus and congestive heart failure . Medical Decision Making Data Points Result Diagram: 06/08/18 1812 06/08/18 1812 Laboratory Hematology Test 06/08/18 18:00 06/08/18 18:12 Influenza Virus Type A (PCR) Negative (NEGATIVE) Influenza Virus Type B (PCR) Negative (NEGATIVE) Red Blood Count 5.04 M/uL (4.00-5.60) Mean Corpuscular Volume 94.6 fL (80.0-96.0) Mean Corpuscular Hemoglobin 32.7 pg (26.0-33.0) Mean Corpuscular Hemoglobin Concent 34.6 g/dL (32.0-36.0) Red Cell Distribution Width 13.5 % (11.5-14.5) Mean Platelet Volume 9.3 fL (7.2-11.1) Neutrophils (%) (Auto) 86.3 % (39.4-72.5) Lymphocytes (%) (Auto) 3.8 % (17.6-49.6) Monocytes (%) (Auto) 7.4 % (4.1-12.4) Eosinophils (%) (Auto) 2.3 % (0.4-6.7) Basophils (%) (Auto) 0.2 % (0.3-1.4) Nucleated RBC Relative Count (auto) 0.0 /100WBC Neutrophils # (Auto) 6.0 K/uL (2.0-7.4) Lymphocytes # (Auto) 0.3 K/uL (1.3-3.6) Monocytes # (Auto) 0.5 K/uL (0.3-1.0) Eosinophils # (Auto) 0.2 K/uL (0.0-0.5) Basophils # (Auto) 0.0 K/uL (0.0-0.1) Nucleated RBC Absolute Count (auto) 0.00 K/uL Sodium Level 140 mmol/L (137-145) Potassium Level 4.0 mmol/L (3.5-5.0) Chloride Level 101 mmol/L (98-107) Carbon Dioxide Level 28 mmol/L (22-30) Blood Urea Nitrogen 18 mg/dl (9-21) Creatinine 0.80 mg/dl (0.66-1.25) Glomerular Filtration Rate Calc > 60.0 Random Glucose 121 mg/dl (75-110) Calcium Level 10.2 mg/dl (8.4-10.2) Total Bilirubin 1.2 mg/dl (0.2-1.3) Aspartate Amino Transf (AST/SGOT) 26 U/L (0-35) Alanine Aminotransferase (ALT/SGPT) 39 U/L (0-56) Alkaline Phosphatase 54 U/L (0-126) Troponin I < 0.012 ng/ml B-Type Natriuretic Peptide 54 pg/ml (0-100) Total Protein 7.3 g/dl (6.3-8.2) Albumin 4.7 g/dl (3.5-5.0) Chemistry Test 06/08/18 18:00 06/08/18 18:12 Influenza Virus Type A (PCR) Negative (NEGATIVE) Influenza Virus Type B (PCR) Negative (NEGATIVE) White Blood Count 7.0 k/uL (4.5-11.0) Red Blood Count 5.04 M/uL (4.00-5.60) Hemoglobin 16.5 g/dL (14.0-18.0) Hematocrit 47.6 % (42.0-52.0) Mean Corpuscular Volume 94.6 fL (80.0-96.0) Mean Corpuscular Hemoglobin 32.7 pg (26.0-33.0) Mean Corpuscular Hemoglobin Concent 34.6 g/dL (32.0-36.0) Red Cell Distribution Width 13.5 % (11.5-14.5) Platelet Count 144 K/uL (150-450) Mean Platelet Volume 9.3 fL (7.2-11.1) Neutrophils (%) (Auto) 86.3 % (39.4-72.5) Lymphocytes (%) (Auto) 3.8 % (17.6-49.6) Monocytes (%) (Auto) 7.4 % (4.1-12.4) Eosinophils (%) (Auto) 2.3 % (0.4-6.7) Basophils (%) (Auto) 0.2 % (0.3-1.4) Nucleated RBC Relative Count (auto) 0.0 /100WBC Neutrophils # (Auto) 6.0 K/uL (2.0-7.4) Lymphocytes # (Auto) 0.3 K/uL (1.3-3.6) Monocytes # (Auto) 0.5 K/uL (0.3-1.0) Eosinophils # (Auto) 0.2 K/uL (0.0-0.5) Basophils # (Auto) 0.0 K/uL (0.0-0.1) Nucleated RBC Absolute Count (auto) 0.00 K/uL Glomerular Filtration Rate Calc > 60.0 Calcium Level 10.2 mg/dl (8.4-10.2) Total Bilirubin 1.2 mg/dl (0.2-1.3) Aspartate Amino Transf (AST/SGOT) 26 U/L (0-35) Alanine Aminotransferase (ALT/SGPT) 39 U/L (0-56) Alkaline Phosphatase 54 U/L (0-126) Troponin I < 0.012 ng/ml B-Type Natriuretic Peptide 54 pg/ml (0-100) Total Protein 7.3 g/dl (6.3-8.2) Albumin 4.7 g/dl (3.5-5.0) EKG/Imaging EKG Interpretation 12 lead EKG: Time of EKG 1753. Rhythm: Normal sinus rhythm, ventricular rate 79 BPM. [place]: normal QRS: Right bundle branch block. ST segments: No ST depression or elevation identified, inverted T-wave in V2. No significant changes from the 04/28/2018 EKG. Imaging Location: [facility] - [place] Patient: Rylan Villasenor : 1935 Visit/Account:[id number] Date of Sevice: 06/08/2018 Technique: CHEST SINGLE AP HISTORY: RESP DISTRESS COMPARISON: Chest radiograph 05/09/2018 Findings: The lungs are clear. No pleural effusion or pneumothorax. The cardiomediastinal silhouette is unchanged. Impression: 1. No acute cardiopulmonary process. Report Dictated By: Jack Ortega DO at 06/08/2018 6:47 PM Report E-Signed By: Jack Ortega DO at 06/08/2018 6:48 PM WSN:[id number] ED Course/Re-evaluation Clinical Indication for ER IV: Hydration, IV Access ED Course The patient was admitted to room. A history and physical were obtained. Differential diagnoses were considered. An IV was started. A CBC, CMP and troponin were obtained. CBC unremarkable, chemistry unremarkable, negative troponin, negative influenza. Negative chest x-ray. Patient was given a 500 mL normal saline bolus. Patient was given DuoNeb 2, patient states he had good relief after the DuoNeb's, he was also given 125 mg IV Solu-Medrol, patient was on a long steroid dose essentially from March through about 1 week ago, 70 possible that the patient had a rebound after coming off the steroids, although he's had aches and chills suspected that his COPD exacerbation secondary to a viral illness, I did however instruct the patient back on a tapered dose of prednisone, he'll follow-up with his primary care provider this week for reevaluation, he'll return to the ER for any other concerns or worsening sym ptoms. Patient expressed understanding, was agreeable with this plan care and discharged home. Decision to Disposition Date: Jun 08, 2018 Decision to Disposition Time: 19:42 Depart Departure Latest Vital Signs Vital Signs Date Time Temp Pulse Resp B/P (MAP) Pulse Ox O2 Delivery O2 Flow Rate FiO2 06/08/18 19:36 80 20 06/08/18 19:30 94 06/08/18 19:30 Nasal Cannula 3.0 06/08/18 18:30 139/78 (98) 06/08/18 17:41 99.6 Impression: Primary Impression: Viral syndrome Additional Impression: COPD exacerbation Condition: Improved Disposition: HOME OR SELF-CARE Referrals: BRIANA KOHLI MD (PCP) 2 Days New Scripts Prednisone (PREDNISONE) 20 Mg Tablet 40 MG PO QDAY, #17 TAB 40mg once a day for 4 days. 30mg once a day for 3 days. 20mg once a day for 3 days. 10mg once a day for 2 days. Prov: ASHISH FULTON 06/08/18 Patient Instructions: COPD (Chronic Obstructive Pulmonary Disease) (ED), Viral Syndrome (ED) Additional Instructions: I believe you have a viral illness that has exacerbated your COPD. Your given an IV dose of steroids tonight, I did send over a tapered dose of steroids to your pharmacy. Please follow-up with Dr. Kohli this week. Follow-up with her tin dipper this week as well. Drink plenty of water. Get plenty of rest. Return to the emergency department for any other concerns or worsening symptoms. Problem Qualifiers ASHISH FULTON Jun 08, 2018 17:43
[2018-06-08] MEDS ORDERED: ALBUTEROL/IPRATROPIUM 3 ML NEB NEB ONE ×2 (17:50→19:10)
[2018-06-08] MEDS ORDERED: NS(*) 0.9% 500 ML BAG 500 ML IV ONE (17:50)
[2018-06-08 18:18] LABS: PLATELET COUNT, AUTOMATED 144 K/uL (150-450)
[2018-06-08 18:30] VITALS: BP 139/78
--- NOTE | 2018-06-08 18:32 | EKG ---
FACILITY: [facility] PATIENT NAME: GRETTA BEGUM : [id number] MR: [id number] V: [id number] EXAM DATE: ORDERING PHYSICIAN: ASHISH FULTON TECHNOLOGIST: CHRIS Haley Reason : CP Blood Pressure : / mmHG Vent. Rate : 079 BPM Atrial Rate : 079 BPM P-R Int : 206 ms QRS Dur : 134 ms QT Int : 400 ms P-R-T Axes : 038 053 061 degrees QTc Int : 458 ms Normal sinus rhythm with 1st degree AV block Right bundle branch block Septal infarct , age undetermined Abnormal ECG When compared with ECG of 09-MAY-2018 14:24, premature atrial complexes are no longer present MS interval has decreased Septal infarct is now present Confirmed by Vik Mancuso ([id number]) on 06/08/2018 10:48:57 PM Referred By: DEDRICK Confirmed By:Vik Rinaldi
--- NOTE | 2018-06-08 18:52 | RADIOLOGY IMAGING REPORT ---
FACILITY: [facility] [place] PATIENT NAME: Rylan Villasenor : 1935 MR: [id number] V: [id number] EXAM DATE: ORDERING PHYSICIAN: ASHISH FULTON TECHNOLOGIST: [place] [facility] [place] Rylan Villasenor : 1935 Visit/Account:[id number] Date of Sevice: 06/08/2018 Technique: CHEST SINGLE AP HISTORY: RESP DISTRESS COMPARISON: Chest radiograph 05/09/2018 Findings: The lungs are clear. No pleural effusion or pneumothorax. The cardiomediastinal silhouett e is unchanged. Impression: 1. No acute cardiopulmonary process. Report Dictated By: Jack Ortega DO at 06/08/2018 6:47 PM Report E-Signed By: Jack Ortega DO at 06/08/2018 6:48 PM WSN:[id number]
[2018-06-08] MEDS ORDERED: methylPREDNIS SUCC 125 MG/2ML IVP ONE (19:15)
[2018-06-08] MEDS ORDERED: PRED20TA6 PO (19:15)
[2018-06-11] MEDS ORDERED: TAMS0.4C70 PO (14:49)
== END 2018-06-08 19:45 | disposition home or self-care (01) ==
LOC: ER 18:08
DX: B34.9 Viral infection, unspecified (principal); J44.1 Chronic obstructive pulmonary disease with (acute) exacerbation
CPT/HCPCS: 71045; 83880; 84484; 85025; 87502; 93005; 94640; 96361; 96374; 99284; J2930; J7040; J7620; 82040; 82247; 82310; 82374; 82435; 82565; 82947; 84075; 84132; 84155; 84295; 84450; 84460; 84520

== ENCOUNTER 2018-07-03 01:15 | Emergency (ER) | payer MEDICARE ==
[~2018-07-03 01:15] MED LIST changes: -CIPR-344 PO; -GUAI1200 PO; -LUTE40CA PO; -MELA1TAB9 PO; -METR-1 PO; -OMEG100032 PO; -ONDA4TAB9 PO; -TAMS0.4C25 PO; -[UNRECOGNIZED DRUG - CODE] OU
--- NOTE | 2018-07-03 01:21 | ER Report ---
History and Physical Time Seen By MD: 01:20 (MATEO COFFMAN DO) Time Seen By MD: 07:00 (TRINY BUSBY DO) HPI/ROS CHIEF COMPLAINT: Vomiting, diarrhea, abdominal pain HISTORY OF PRESENT ILLNESS: 82-year-old male brought in by EMS from home with sudden onset of epigastric pain after having diarrhea. Patient's been vomiting for approximately 90 minutes. He describes epigastric pain and diffuse crampy abdominal pain. She denies consumption of bad food or exposure to ill contacts. Patient notes a mild chest pain. EMS attempted to give aspirin, but the patient vomited it up. Patient also notes a dry cough for 2 days. REVIEW OF SYSTEMS: Respiratory: No cough, no dyspnea. Cardiovascular: As above Gastrointestinal: As above Musculoskeletal: No back pain. (MATEO COFFMAN DO) HPI/ROS Please see Dr. Coffman's note (TRINY BUSBY DO) Allergies: Coded Allergies: Penicillins (Verified Allergy, Mild, PASSED OUT-50-6O YRS AGO, 05/09/18) Home Meds Active Scripts Ondansetron 4 Mg Odt (ONDANSETRON 4 MG ODT) 4 Mg Tab.rapdis, 4 MG PO Q6H PRN for NAUSEA/VOMITING, #15 TAB Prov:MATEO COFFMAN DO 07/03/18 Metronidazole (FLAGYL) 500 Mg Tablet, 500 MG PO BID for infection, #14 TAB Prov:MATEO COFFMAN DO 07/03/18 Ciprofloxacin Hcl 500 Mg Tab (CIPRO 500 MG TAB) 500 Mg Tablet, 500 MG PO BID for infection, #14 Prov:MATEO COFFMAN DO 07/03/18 Hydrocodone Bit/Acetaminophen (HYDROCODON-ACETAMINOPHEN 5-325) 1 Each Tablet, 1 TAB PO TID PRN for pain, #90 TAB 0 Refills Prov:BRIANA BRYANT MD 06/19/18 Prednisone 5 Mg Tab (PREDNISONE 5 MG TAB) 5 Mg Tablet, 5 MG PO QDAY, #30 TAB Prov:BRIANA BRYANT MD 06/16/18 Albuterol Sulfate 90 Mcg/Act (PROAIR HFA 90 MCG/ACT) 8.5 Gm Hfa.aer.ad, 1 PUFF IH QID PRN for SHORTNESS OF BREATH for 90 Days, #1 INHALER 3 Refills Prov:BRIANA BRYANT MD 05/29/18 Albuterol Sulfate 0.083% (ALBUTEROL SULFATE 0.083%) 2.5 Mg/3 Ml Vial.neb, 2.5 MG INH QID PRN for DYSPNEA, #360 INH 3 Refills Prov:BRIANA BRYANT MD 05/18/18 Trazodone Hcl (TRAZODONE HCL) 50 Mg Tablet, 1-2 TAB PO QHS PRN for difficulty sleeping, #30 TAB 6 Refills Prov:BRIANA BRYANT MD 04/10/18 Montelukast Sodium (SINGULAIR) 10 Mg Tablet, 1 TAB PO QDAY, #90 TAB 4 Refills Prov:BRIANA BRYANT MD 01/15/18 Pantoprazole Sodium (PANTOPRAZOLE SODIUM) 40 Mg Tablet.dr, 1 TAB PO QDAY, #90 TAB.SR 4 Refills Prov:BRIANA BRYANT MD 01/01/18 Meclizine Hcl (MECLIZINE HCL) 25 Mg Tablet, 1 TAB PO BID PRN for dizziness, #180 TAB 3 Refills Prov:BRIANA BRYANT MD 10/29/17 Atorvastatin Calcium (ATORVASTATIN CALCIUM) 20 Mg Tablet, 1 TAB PO QDAY, #90 TAB 4 Refills Prov:BRIANA BRYANT MD 08/20/17 Azelastine/Fluticasone (DYMISTA NASAL SPRAY) 23 Gm [place].pump, 1-2 SPRAY NS QDAY, #3 BOTTLE 5 Refills Prov:BRIANA BRYANT MD 06/04/17 Tiotropium Closplint (SPIRIVA) 18 Mcg/Cap Inh, 1 PUFF INH DAILY, #3 INH 4 Refills Prov:BRIANA BRYANT MD 07/24/16 Oxygen (OXYGEN) Inha, 2 L INH QDAY, #2 L Prov:AVIVA MOREIRA DNP, PATTERN HAND-BC 07/03/15 Reported Medications Budesonide/Formoterol Fumarate (SYMBICORT 160-4.5 MCG INHALER) 10.2 Gm Inh, 1-2 GM INH QDAY, INH 07/03/18 Spironolactone (SPIRONOLACTONE) 25 Mg Tablet, 25 MG PO QDAY, TAB 07/03/18 Trimethoprim (Trimpex) 50 Mg/5 Ml Solution, 1 MG OU PRN 07/03/18 Tamsulosin Hcl (FLOMAX) 0.4 Mg Cap.er.24h, 0.8 MG PO QDAY, CAP 07/03/18 Saw [place] Fruit (SAW PALMETTO) 450 Mg Capsule, 450 MG PO QDAY, CAPSULE 07/03/18 Dolphin-3 Fatty Acids (OMEGA-3) 1,000 Mg Capsule, 1000 MG PO QDAY, CAPSULE 07/03/18 Nystatin/Triamcin (NYSTATIN-TRIAMCINOLONE CREAM) 15 Gm Cream..g., 1 GAURAV TP QDAY 07/03/18 Guaifenesin (MUCINEX) 1,200 Mg Tbmp.12hr, 1200 MG PO QDAY 07/03/18 Melatonin/Pyridoxine HCl (B6) (Melatonin 3 mg Tablet) 1 Each Tablet, 1 TAB PO QHS 07/03/18 Lutein (LUTEIN) 40 Mg Capsule, 40 MG PO QDAY, CAPSULE 07/03/18 Lisinopril (LISINOPRIL) 20 Mg Tablet, 20 MG PO QDAY, TAB 07/03/18 Glucosa [place] 2KCL/Chondroitin Kamara (GLUCOSAMINE & CHONDROITIN CAP) 1 Each Capsule, 1 EACH PO QDAY, CAPSULE 07/03/18 Guaifenesin/Codeine Phosphate (Codeine-Guaifen 10-100 mg/5 ml) 120 Ml Liquid, 5 ML PO Q6H PRN for COUGH 07/03/18 Budesonide (BUDESONIDE) 0.25 Mg/2 Ml Ampul.neb, 4 ML IH BID, ML 07/03/18 Linaclotide (LINZESS) 290 Mcg Capsule, 290 MCG PO PRN, CAPSULE 04/10/17 Psyllium Husk (FIBER) 0.52 Gm Capsule, 0.52 GM PO TID, CAPSULE 05/08/15 Aspirin (ASPIRIN) 81 Mg Tab.chew, 81 MG PO QDAY, TAB.CHEW 05/08/15 Discontinued Reported Medications Polyethylene Glycol 3350 (MIRALAX) 17 Gm Powd.pack, 17 GM PO QDAY PRN for CON STIPATION, PKT 04/22/17 Lutein (LUTEIN) 20 Mg Tablet, 20 MG PO DAILY 05/08/15 Cyclosporine (RESTASIS) 1 Each [place], 1 EACH OP DAILY for dry eyes 12/30/13 Discontinued Scripts Tamsulosin Hcl (TAMSULOSIN HCL) 0.4 Mg Cap.er.24h, 1 CAP PO BID, #180 CAP 1 Refill Prov:BRIANA BRYANT MD 06/11/18 Lisinopril (LISINOPRIL) 20 Mg Tablet, 20 MG PO BID, #180 TAB 3 Refills Prov:BRIANA BRYANT MD 04/28/18 Budesonide (BUDESONIDE) 0.5 Mg/2 Ml Ampul.neb, 0.5 MG IH BID, #180 ML 3 Refills Prov:BRIANA BRYANT MD 11/26/17 Formoterol Fumarate (PERFOROMIST) 20 Mcg/2 Ml Vial.neb, 1 INH IH BID, #180 VIAL 3 Refills Prov:BRIANA BRYANT MD 11/26/17 Fluticasone Prop 50 Mcg Ns (FLONASE 50 MCG NS) 16 Gm [place].susp, 2 SPRAYS NS QDAY, #1 CON 6 Refills Prov:WALT ROYAL MD 07/15/14 Past Medical/Surgical History Previous data that was not reviewed today Past medical history significant for hypertension and is currently on lisinopril/hydrochlorothiazide 20/12.5 mg twice a day History significant for Mnire's disease and is currently following up with an ENT surgeon in [place] Past medical history significant for insomnia and difficulty sleeping for which he is currently on trazodone and that seems to be helping Patient also has history of sleep apnea and is currently using CPAP with oxygen Patient has history of prostate cancer and is status post radiation treatment PSA has been therapeutic Past medical history significant for hyperlipidemia and is on atorvastatin 20 mg daily Patient also has history of chronic pain and has been on Vicodin 3 times a day when necessary Past Medical History HEENT: Reports hx of: allergic rhinitis (on allergy shots for some time. ) hearing deficit (some chronic tinnitus. ) Meniere's disease (2002. Had 6 months of physical tx. Still affects his balance. ) Cardiovascular: Reports hx of: hyperlipidemia hypertension (Tx since 1984) pericarditis (. most likely viral. angiogram was OK. ) Respiratory: Reports hx of: asthma (most of life. Sees Dr. Hyde. ) sleep apnea (Dx 2001. Had cpap and oxygen at night.) other respiratory history (peak flow 370 in 3/14. 300 in 07/03. ) Genitourinary: Reports hx of: other urinary history (Prostate Cancer 04/2008) Musculoskeletal: Reports hx of: gout (Had in feet. no problem since stopped drinking. ) neck pain (for many years. regular meloxicam. Phys Tx in 2011. ) Hematology/oncology: Reports hx of: prostate cancer (radiation treatment) Events: REPORTS HX OF: Other events (abstracted 07/03. Annual exam in late 07/03. ) Past Surgical History HEENT: Reports hx of: other nasal surgery (2009;Repair of deviated Septum by Dr. Crooks.) Musculoskeletal: Reports hx of: spinal surgery (Lumbar Laminectomy; 1987) total joint replacement (3 total knees on right and 2 on the left.) (MATEO COFFMAN DO) Reviewed Nurses Notes: Yes Old Medical Records Reviewed: Yes (MATEO COFFMAN DO) Hx Smoking: No (40 YRS-1 PPD, QUIT IN 1991) Smoking Status: Former Smoker Hx Substance Use Disorder: No Hx Alcohol Use: No (NONE FOR 15 YRS) (MATEO COFFMAN DO) Constitutional Vital Sign - Last 24 Hours 07/03/18 07/03/18 07/03/18 07/03/18 01:16 01:16 01:30 01:45 Temp 99.3 Pulse 69 71 66 Resp 24 21 17 B/P (MAP) 156/83 Pulse Ox 94 94 O2 Delivery Nasal Cannula O2 Flow Rate 3.0 07/03/18 07/03/18 07/03/18 07/03/18 01:56 02:00 02:14 02:14 Pulse 77 66 Resp 20 20 B/P (MAP) 129/64 (85) 90/76 (81) Pulse Ox 76 96 O2 Delivery Nasal Cannula O2 Flow Rate 3.0 07/03/18 07/03/18 07/03/18 07/03/18 02:15 02:45 03:00 03:05 Pulse 69 66 70 70 Resp 17 21 20 13 B/P (MAP) 127/65 (85) Pulse Ox 96 07/03/18 07/03/18 07/03/18 07/03/18 03:10 03:15 03:20 03:34 Pulse ??? 71 73 Resp 18 B/P (MAP) 136/71 (92) 07/03/18 07/03/18 07/03/18 07/03/18 03:35 03:40 03:45 03:50 Pulse 83 76 79 77 Resp 20 19 27 21 Pulse Ox 95 94 95 94 07/03/18 07/03/18 07/03/18 07/03/18 03:55 04:18 04:25 04:30 Pulse 76 72 Resp 21 23 B/P (MAP) 126/83 (97) 112/57 (75) Pulse Ox 92 94 07/03/18 07/03/18 07/03/18 07/03/18 04:35 04:40 04:45 04:50 Pulse 72 73 71 71 Resp 22 38 13 31 Pulse Ox 93 93 93 94 07/03/18 07/03/18 07/03/18 07/03/18 04:55 05:00 05:05 05:10 Pulse 74 ??? 74 78 Resp 15 13 11 32 B/P (MAP) 117/54 (75) Pulse Ox 92 94 92 93 07/03/18 07/03/18 07/03/18 07/03/18 05:15 05:20 05:25 05:29 Pulse 76 75 76 75 Resp 20 23 17 Pulse Ox 94 94 94 07/03/18 07/03/18 07/03/18 07/03/18 05:34 06:00 06:34 06:53 Pulse 76 Resp 21 21 B/P (MAP) 103/54 (70) 123/62 (82) Pulse Ox 93 94 07/03/18 07/03/18 07/03/18 07/03/18 07:00 07:30 08:00 08:01 Pulse 71 79 Resp 22 18 B/P (MAP) 116/56 (76) 114/50 (71) 115/52 (73) Pulse Ox 87 07/03/18 07/03/18 07/03/18 07/03/18 08:30 09:00 09:30 10:00 Pulse 70 73 Resp 13 34 B/P (MAP) 115/53 (73) 109/94 (99) 111/57 (75) 104/61 (75) Pulse Ox 90 90 07/03/18 07/03/18 10:30 11:00 Pulse 71 73 Resp 18 16 B/P (MAP) 117/55 (75) 114/55 (74) Pulse Ox 91 87 Intake and Output 07/02/18 07/02/1819 15:00 23:00 07:00 Intake Total 1000 ml Balance 1000 ml (TRINY BUSBY DO) Physical Exam Vital signs stable, febrile 99.3, pulse ox normal General Appearance: patient is alert, has no immediate need for airway protection and no current signs of toxicity. Slightly pale appearing, vomiting HEENT: Pupils equal and round no injection. Oropharynx with mild erythema, no exudate Respiratory: Chest is non tender, lungs are clear to auscultation. No wheezing or rails Cardiac: regular rate and rhythm, no murmur Gastrointestinal: Abdomen is soft, mild epigastric tenderness, no masses, bowel sounds normal. Musculoskeletal: Neck: Neck is supple and non tender. No lymphadenopathy Extremities have full range of motion and are non tender. No edema, no calf tenderness Skin: No rashes or lesions. DIFFERENTIAL DIAGNOSIS: After history and physical exam differential diagnosis was considered for abdominal pain including but not limited to appendicitis, cholecystitis, gastritis and urinary tract infection. Additionally,chest pain including but not limited to myocardial ischemia, pericarditis pulmonary embolus, chest wall pain, pleural inflammation and pulmonary infectious causes. (MATEO COFFMAN DO) Physical Exam Please see Dr. Coffman's note (TRINY BUSBY DO) Medical Decision Making Data Points Result Diagram: 07/03/18 0148 07/03/18147 Laboratory Hematology Test 07/03/18 01:48 07/03/18 03:32 Red Blood Count 5.18 M/uL (4.00-5.60) Mean Corpuscular Volume 95.3 fL (80.0-96.0) Mean Corpuscular Hemoglobin 33.0 pg (26.0-33.0) Mean Corpuscular Hemoglobin Concent 34.7 g/dL (32.0-36.0) Red Cell Distribution Width 13.8 % (11.5-14.5) Mean Platelet Volume 9.4 fL (7.2-11.1) Neutrophils (%) (Auto) % (39.4-72.5) Lymphocytes (%) (Auto) % (17.6-49.6) Monocytes (%) (Auto) % (4.1-12.4) Eosinophils (%) (Auto) % (0.4-6.7) Basophils (%) (Auto) % (0.3-1.4) Nucleated RBC Relative Count (auto) /100WBC Neutrophils # (Auto) K/uL (2.0-7.4) Lymphocytes # (Auto) K/uL (1.3-3.6) Monocytes # (Auto) K/uL (0.3-1.0) Eosinophils # (Auto) K/uL (0.0-0.5) Basophils # (Auto) K/uL (0.0-0.1) Nucleated RBC Absolute Count (auto) K/uL Neutrophils % (Manual) 51 % (39.4-72.5) Band Neutrophils % 27 % Lymphocytes % (Manual) 16 % (17.6-49.6) Monocytes % (Manual) 2 % (4.1-12.4) Eosinophils % (Manual) 3 % (0.4-6.7) Basophils % (Manual) 0 % (0.3-1.4) Metamyelocytes % 1 % Peripheral Blood Smear Yes Y/N Sodium Level 140 mmol/L (137-145) Potassium Level 4.0 mmol/L (3.5-5.0) Chloride Level 104 mmol/L (98-107) Carbon Dioxide Level 25 mmol/L (22-30) Blood Urea Nitrogen 21 mg/dl (9-21) Creatinine 0.90 mg/dl (0.66-1.25) Glomerular Filtration Rate Calc > 60.0 Random Glucose 121 mg/dl (75-110) Calcium Level 9.8 mg/dl (8.4-10.2) Total Bilirubin 0.7 mg/dl (0.2-1.3) Aspartate Amino Transf (AST/SGOT) 30 U/L (0-35) Alanine Aminotransferase (ALT/SGPT) 49 U/L (0-56) Alkaline Phosphatase 56 U/L (0-126) Troponin I < 0.012 ng/ml Total Protein 7.2 g/dl (6.3-8.2) Albumin 4.7 g/dl (3.5-5.0) Amylase Level 67 U/L (0-110) Lipase 155 U/L (23-300) Urine Color Yellow Urine Clarity Clear Urine pH 5.0 pH (4.8-9.5) Urine Specific [place] 1.020 Urine Protein Negative mg/dL (NEGATIVE) Urine Glucose (UA) Negative mg/dL (NEGATIVE) Urine Ketones Negative mg/dL (NEGATIVE) Urine Blood Small (NEGATIVE) Urine Nitrite Negative (NEGATIVE) Urine Bilirubin Negative (NEGATIVE) Urine Urobilinogen 2.0 mg/dL (0.2-1.9) Urine Leukocyte Esterase Negative (NEGATIVE) Urine RBC 6 /HPF (0-2/HPF) Urine WBC 2 /HPF (0-5/HPF) Urine Squamous Epithelial Cells None /LPF (</=FEW) Urine Transitional Epithelial Cells Few /LPF (NONE-FEW) Urine Bacteria Negative /HPF (NONE-FEW) Urine Hyaline Casts Moderate /LPF (NONE-FEW) Urine Mucus Few /HPF (NONE-FEW) Chemistry Test 07/03/18 01:48 07/03/18 03:32 White Blood Count 4.6 k/uL (4.5-11.0) Red Blood Count 5.18 M/uL (4.00-5.60) Hemoglobin 17.1 g/dL (14.0-18.0) Hematocrit 49.4 % (42.0-52.0) Mean Corpuscular Volume 95.3 fL (80.0-96.0) Mean Corpuscular Hemoglobin 33.0 pg (26.0-33.0) Mean Corpuscular Hemoglobin Concent 34.7 g/dL (32.0-36.0) Red Cell Distribution Width 13.8 % (11.5-14.5) Platelet Count 150 K/uL (150-450) Mean Platelet Volume 9.4 fL (7.2-11.1) Neutrophils (%) (Auto) % (39.4-72.5) Lymphocytes (%) (Auto) % (17.6-49.6) Monocytes (%) (Auto) % (4.1-12.4) Eosinophils (%) (Auto) % (0.4-6.7) Basophils (%) (Auto) % (0.3-1.4) Nucleated RBC Relative Count (auto) /100WBC Neutrophils # (Auto) K/uL (2.0-7.4) Lymphocytes # (Auto) K/uL (1.3-3.6) Monocytes # (Auto) K/uL (0.3-1.0) Eosinophils # (Auto) K/uL (0.0-0.5) Basophils # (Auto) K/uL (0.0-0.1) Nucleated RBC Absolute Count (auto) K/uL Neutrophils % (Manual) 51 % (39.4-72.5) Band Neutrophils % 27 % Lymphocytes % (Manual) 16 % (17.6-49.6) Monocytes % (Manual) 2 % (4.1-12.4) Eosinophils % (Manual) 3 % (0.4-6.7) Basophils % (Manual) 0 % (0.3-1.4) Metamyelocytes % 1 % Peripheral Blood Smear Yes Y/N Glomerular Filtration Rate Calc > 60.0 Calcium Level 9.8 mg/dl (8.4-10.2) Total Bilirubin 0.7 mg/dl (0.2-1.3) Aspartate Amino Transf (AST/SGOT) 30 U/L (0-35) Alanine Aminotransferase (ALT/SGPT) 49 U/L (0-56) Alkaline Phosphatase 56 U/L (0-126) Troponin I < 0.012 ng/ml Total Protein 7.2 g/dl (6.3-8.2) Albumin 4.7 g/dl (3.5-5.0) Amylase Level 67 U/L (0-110) Lipase 155 U/L (23-300) Urine Color Yellow Urine Clarity Clear Urine pH 5.0 pH (4.8-9.5) Urine Specific [place] 1.020 Urine Protein Negative mg/dL (NEGATIVE) Urine Glucose (UA) Negative mg/dL (NEGATIVE) Urine Ketones Negative mg/dL (NEGATIVE) Urine Blood Small (NEGATIVE) Urine Nitrite Negative (NEGATIVE) Urine Bilirubin Negative (NEGATIVE) Urine Urobilinogen 2.0 mg/dL (0.2-1.9) Urine Leukocyte Esterase Negative (NEGATIVE) Urine RBC 6 /HPF (0-2/HPF) Urine WBC 2 /HPF (0-5/HPF) Urine Squamous Epithelial Cells None /LPF (</=FEW) Urine Transitional Epithelial Cells Few /LPF (NONE-FEW) Urine Bacteria Negative /HPF (NONE-FEW) Urine Hyaline Casts Moderate /LPF (NONE-FEW) Urine Mucus Few /HPF (NONE-FEW) Urinalysis Test 07/03/18 03:32 Urine Color Yellow Urine Clarity Clear Urine pH 5.0 pH (4.8-9.5) Urine Specific [place] 1.020 Urine Protein Negative mg/dL (NEGATIVE) Urine Glucose (UA) Negative mg/dL (NEGATIVE) Urine Ketones Negative mg/dL (NEGATIVE) Urine Blood Small (NEGATIVE) Urine Nitrite Negative (NEGATIVE) Urine Bilirubin Negative (NEGATIVE) Urine Urobilinogen 2.0 mg/dL (0.2-1.9) Urine Leukocyte Esterase Negative (NEGATIVE) Urine RBC 6 /HPF (0-2/HPF) Urine WBC 2 /HPF (0-5/HPF) Urine Squamous Epithelial Cells None /LPF (</=FEW) Urine Transitional Epithelial Cells Few /LPF (NONE-FEW) Urine Bacteria Negative /HPF (NONE-FEW) Urine Hyaline Casts Moderate /LPF (NONE-FEW) Urine Mucus Few /HPF (NONE-FEW) (TRINY BUSBY DO) EKG/Imaging EKG Interpretation 12 lead EK Rhythm: normal sinus rhythm with ? AV dissociation [place]: Right axis QRS: Right bundle branch block pattern ST segments: normal Imaging X-ray: Single view portable chest x-ray was obtained. I viewed the images myself on the PACS system. My interpretation of the images is: No infiltrate, no effusion, eventration of the right hemidiaphragm, comparison to previous chest x-ray 06/08/18. The radiologist interpretation had no clinically significant variation from this interpretation. Results: CT scan of the abdomen and pelvis with IV contrast was obtained. The results of the study are INDICATION: Abdominal, acute bandemia 27%. COMPARISON: 05/01/2016 and previous. TECHNIQUE: Contrast enhanced abdomen and pelvis CT performed during the injection of 75 ml of Isovue 370. Sagittal and coronal reconstructions were performed. One of the following dose optimization techniques was utilized in the performance of this exam: Automated exposure control; adjustment of the mA and/or kV according to the patient's size; or use of an iterative reconstruction technique. Specific details can be referenced in the facility's radiology CT exam operational policy. FINDINGS: Lung bases: Mild scarring/atelectasis. Coronary artery calcifications. Liver and hepatic vasculature: 8 mm hypoattenuating lesion in segment 6 on image 54 series 2 may represent a cyst or hemangioma. Subtle 13 mm hyperattenuating lesion in the periphery of the right lobe on image 39 series 2 was present in 2008 and most likely represents a flash filling hemangioma. Gallbladder and bile ducts: Normal. Spleen: Normal. Pancreas: There is an irregular peripherally hyperattenuating and centrally hypoattenuating lesion in the tail of the pancreas measuring 3.0 x 2.0 cm cyst in the coronal plane on image 57 series 4. Adrenals: Normal. Kidneys, ureters and bladder: Bilateral subcentimeter hypoattenuating lesions likely represent cysts. No acute abnormality or suspicious lesion. Retroperitoneum and aorta: Nonaneurysmal aorta with mild atherosclerosis. No adenopathy or acute abnormality. GI tract, mesentery and peritoneum: Multiple fluid-filled loops of small bowel with fluid in the proximal colon. There may be associated increased wall enhancement. No evidence of obstruction. No pneumatosis, pneumoperitoneum or free fluid. Severe sigmoid diverticulosis. Normal appendix. Prostate and seminal vesicles: Normal. Bones and soft tissues: Mineralization appears low. No acute abnormality or suspicious lesion. Moderate to severe multilevel spondylosis. L5 laminectomies. Moderate size fat containing umbilical hernia. Left larger than right small fat-containing inguinal hernias. No acute abnormality or suspicious lesion. IMPRESSION: 1. Suspected infectious or inflammatory enteritis. 2. 3.0 cm peripherally hyperattenuating and centrally hypoattenuating lesion in the tail of the pancreas suspicious for neoplasm, possibly islet cell origin. Recommend further characterization with nonemergent pancreas mass protocol MRI, as well as surgical/gastroenterology consultation. 3. Severe sigmoid diverticulosis. 4. Coronary artery calcifications. The study was read by the radiologist. I viewed the images myself on the PACS system. (MATEO COFFMAN DO) EKG Interpretation PATIENT NAME: GRETTA BEGUM : [id number] MR: [id number] V: [id number] EXAM DATE: ORDERING PHYSICIAN: TRINY BUSBY TECHNOLOGIST: Test Reason : Blood Pressure : / mmHG Vent. Rate : 073 BPM Atrial Rate : 073 BPM P-R Int : 214 ms QRS Dur : 126 ms QT Int : 408 ms P-R-T Axes : 038 028 053 degrees QTc Int : 449 ms Sinus rhythm with 1st degree AV block Right bundle branch block Abnormal ECG When compared with ECG of 03-JUL-2018 01:34, Previous ECG has undetermined rhythm, needs review Referred By: Confirmed By: (TRINY BUSBY DO) ED Course/Re-evaluation Clinical Indication for ER IV: Hydration, IV Access ED Course Patient was admitted to an examination room. H&P was done. The differential diagnoses was considered. On clinical examination. Patient appears in moderate distress. He is actively vomiting. Complained of epigastric pain and diarrhea. Patient also having chest pain. His EKG is unremarkable for changes. Home and returned normal. Patient was treated with IV fluid hydration, Zofran 4 mg IV and fentanyl 50 g. His CBC was normal except for a shift of 27 bands was noted. Patient had a chest x-ray which was unremarkable. Patient's urinalysis was unremarkable for obvious infection. A CT scan of the abdomen and pelvis was ordered due to patient's severe abdominal symptoms. Vomiting and diarrhea. A CT scan revealed enterocolitis. It was an incidental pancreatic mass 3 cm in the tail of the pancreas. It was noted suspicious for a neoplasm. Patient was offered admission for continued hydration and treatment of his vomiting and diarrhea. Patient would prefer to go home. He can be prescribed oral medication Flagyl and Cipro as well as Zofran to control his vomiting. He is advised a clear liquid diet. He is already on prednisone, which would treat inflammatory colitis. My suspicion. It is not an inflammatory colitis. Patient was advised to follow-up with his primary care early next week for further evaluation and treatment. Patient also has complete heart block. His EKG. His troponin is unremarkable. His previous EKG from approximately one month ago shows normal sinus rhythm, first-degree AV block. Patient requires cardiology evaluation. He'll be transferred to [facility] his request. 07/03/2018 7:03:17 am was discussed with Dr. Kellogg salesperson burial needs at [facility] who accepts the patient for admission to TCU. He would like the patient to go to the Hospital services because of his enterocolitis and other medical problems. Decision to Disposition Date: Jul 03, 2018 Decision to Disposition Time: 05:31 (MATEO COFFMAN DO) ED Course Patient is an 82-year-old male. I assumed patient care at shift change. I discussed the patient with Doc Line and patient was accepted to [facility]. Dr. Salazar was the accepting hospitalist. Patient was stable at time of transfer. Decision to Disposition Date: Jul 03, 2018 Decision to Disposition Time: 11:29 (TRINY BUSBY DO) Depart Departure Latest Vital Signs Vital Signs Date Time Temp Pulse Resp B/P (MAP) Pulse Ox O2 Delivery O2 Flow Rate FiO2 07/03/18 11:00 73 16 114/55 (74) 87 07/03/18 02:14 Nasal Cannula 3.0 07/03/18 01:16 99.3 (TRINY BUSBY DO) Impression: Primary Impression: Complete heart block Additional Impressions: Enterocolitis Vomiting Pancreatic mass Obstructive sleep apnea on CPAP Condition: Stable Disposition: XFER TO ACUTE CARE HOSPITAL Referrals: BRIANA BRYANT MD (PCP) New Scripts Ondansetron 4 Mg Odt (ONDANSETRON 4 MG ODT) 4 Mg Tab.rapdis 4 MG PO Q6H PRN for NAUSEA/VOMITING, #15 TAB Prov: KLAUDIALUKEY Oli COY 07/03/18 Metronidazole (FLAGYL) 500 Mg Tablet 500 MG PO BID for infection, #14 TAB Prov: MATEO COFFMAN Oli COY 07/03/18 Ciprofloxacin Hcl 500 Mg Tab (CIPRO 500 MG TAB) 500 Mg Tablet 500 MG PO BID for infection, #14 Prov: KLAUDIAMATEO Oli COY 07/03/18 Additional Instructions: Problem Qualifiers Additional Impressions: Vomiting Vomiting type: unspecified Vomiting Intractability: unspecified Nausea presence: unspecified Qualified Codes: R11.10 - Vomiting, unspecified MATEO COFFMAN DO Jul 03, 2018 01:21 TRINY BUSBY DO Jul 03, 2018 07:28
[2018-07-03] MEDS ORDERED: NS(*) 0.9% 1000 ML BAG 1,000 ML IV ONE ×2 (01:24→06:55)
[2018-07-03] MEDS ORDERED: ONDANSETRON 4 MG/2 ML VIAL IVP ONE ×2 (01:25→05:00)
[2018-07-03] MEDS ORDERED: fentaNYL CITR 100 MCG/2 ML AMP IVP ONE (02:00)
[2018-07-03] MEDS ORDERED: ALBUTEROL/IPRATROPIUM 3 ML NEB NEB ONE (02:10)
[2018-07-03 02:11] LABS: PLATELET COUNT, AUTOMATED 150 K/uL (150-450)
--- NOTE | 2018-07-03 02:48 | RADIOLOGY IMAGING REPORT ---
FACILITY: [facility] PATIENT NAME: Rylan Villasenor : 1935 MR: [id number] V: [id number] EXAM DATE: ORDERING PHYSICIAN: MATEO RUDOLPH TECHNOLOGIST: [facility] Patient: Rylan Villasenor : 1935 Visit/Account:[id number] Date of Sevice: 07/03/2018 EXAMINATION: Chest radiograph HISTORY: Dyspnea, epigastric pain COMPARISON: June 08, 2018 FINDINGS: Frontal view obtained. Lines/tubes: None. Cardiomediastinal silhouette: Normal. Lungs/pleura: Normal. Bony structures/chest wall: No acute finding. Other: No apparent intra-abdominal free air. IMPRESSION: No acute finding. Report Dictated By: Jreod Gutiérrez MD at 07/03/2018 2:43 AM Report E-Signed By: Jerod Gutiérrez MD at 07/03/2018 2:44 AM WSN:[id number]
--- NOTE | 2018-07-03 03:36 | EKG ---
FACILITY: [facility] PATIENT NAME: GRETTA BEGUM : [id number] MR: [id number] V: [id number] EXAM DATE: ORDERING PHYSICIAN: MATEO RUDOLPH TECHNOLOGIST: BERONICA Haley Reason : CP Blood Pressure : / mmHG Vent. Rate : 069 BPM Atrial Rate : 065 BPM P-R Int : 000 ms QRS Dur : 142 ms QT Int : 436 ms P-R-T Axes : 000 -06 057 degrees QTc Int : 467 ms Appears to be complete heart block RBBB morphology Abnormal ECG Confirmed by ANASTASIA MANDUJANO ([id number]) on 07/03/2018 5:48:22 AM Referred By: Confirmed By:ANASTASIA MANDUJANO
[2018-07-03] MEDS ORDERED: LISI20TA29 PO (03:51)
[2018-07-03] MEDS ORDERED: MELA1TAB9 PO (03:51)
[2018-07-03] MEDS ORDERED: SAW450CA3 PO (03:51)
[2018-07-03] MEDS ORDERED: GLUC-198 PO (03:51)
[2018-07-03] MEDS ORDERED: SPIR25TA80 PO (03:51)
[2018-07-03] MEDS ORDERED: BUDE10.2 INH (03:51)
[2018-07-03] MEDS ORDERED: [UNRECOGNIZED DRUG - CODE] OU (03:51)
[2018-07-03] MEDS ORDERED: GUAI120L3 PO (03:51)
[2018-07-03] MEDS ORDERED: OMEG100032 PO (03:51)
[2018-07-03] MEDS ORDERED: BUDE0.256 IH (03:51)
[2018-07-03] MEDS ORDERED: TAMS0.4C25 PO (03:51)
[2018-07-03] MEDS ORDERED: GUAI1200 PO (03:51)
[2018-07-03] MEDS ORDERED: NYST15CR33 TP (03:51)
[2018-07-03] MEDS ORDERED: LUTE40CA PO (03:51)
[2018-07-03] MEDS ORDERED: IOPAMIDOL 76% 100 ML INFUS BTL 100 ML ONE (04:07)
--- NOTE | 2018-07-03 05:19 | RADIOLOGY IMAGING REPORT ---
FACILITY: [facility] PATIENT NAME: Rylan Villasenor : 1935 MR: [id number] V: [id number] EXAM DATE: [id number] ORDERING PHYSICIAN: MATEO RUDOLPH TECHNOLOGIST: Location: [facility] Patient: Rylan Villasenor : 1935 Visit/Account:[id number] Date of Sevice: 07/03/2018 COMPUTED TOMOGRAPHY ABDOMEN AND PELVIS WITH INTRAVENOUS CONTRAST DATE OF EXAM: 07/03/2018 3:49 AM INDICATION: Abdominal, acute bandemia 27%. COMPARISON: 05/01/2016 and previous. TECHNIQUE: Contrast enhanced abdomen and pelvis CT performed during the injection of 75 ml of Isovue 370. Sagittal and coronal reconstructions were performed. One of the following dose optimization te chkarelques was utilized in the performance of this exam: Automated exposure control; adjustment of the mA and/or kV according to the patient's size; or use of an iterative reconstruction technique. Spec [facility] details can be referenced in the facility's radiology CT exam operational policy. FINDINGS: Lung bases: Mild scarring/atelectasis. Coronary artery calcifications. Liver and hepatic vasculature: 8 mm hypoattenuating lesion in segment 6 on image 54 series 2 may rep resent a cyst or hemangioma. Subtle 13 mm hyperattenuating lesion in the periphery of the right lobe on image 39 series 2 was present in 2008 and most likely represents a flash filling hemangioma. Gallbladder and bile ducts: Normal. Spleen: Normal. Pancreas: There is an irregular peripherally hyperattenuating and centrally hypoattenuating lesion i n the tail of the pancreas measuring 3.0 x 2.0 cm cyst in the coronal plane on image 57 series 4. Adrenals: Normal. Kidneys, ureters and bladder: Bilateral subcentimeter hypoattenuating lesions likely represent cysts . No acute abnormality or suspicious lesion. Retroperitoneum and aorta: Nonaneurysmal aorta with mild atherosclerosis. No adenopathy or acute ab normality. GI tract, mesentery and peritoneum: Multiple fluid-filled loops of small bowel with fluid in the pro ximal colon. There may be associated increased wall enhancement. No evidence of obstruction. No pn eumatosis, pneumoperitoneum or free fluid. Severe sigmoid diverticulosis. Normal appendix. Prostate and seminal vesicles: Normal. Bones and soft tissues: Mineralization appears low. No acute abnormality or suspicious lesion. Mod erate to severe multilevel spondylosis. L5 laminectomies. Moderate size fat containing umbilical he rnia. Left larger than right small fat-containing inguinal hernias. No acute abnormality or suspici ous lesion. IMPRESSION: 1. Suspected infectious or inflammatory enteritis. 2. 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 Recommend further characterization with no nemergent pancreas mass protocol MRI, as well as surgical/gastroenterology consultation. 3. Severe sigmoid diverticulosis. 4. Coronary artery calcifications. Dr. Jenkins discussed this case with MATEO RUDOLPH on 07/03/2018 5:14 AM. Report Dictated By: Iron Jenkins MD at 07/03/2018 4:51 AM Report E-Signed By: Iron Jenkins MD at 07/03/2018 5:14 AM WSN:[id number]
[2018-07-03] MEDS: ONDANSETRON 4 MG ODT TH SL ONE ×2 (05:30→05:34)
[2018-07-03] MEDS ORDERED: CIPROFLOXACIN 500 MG TAB PO ONE (05:30)
[2018-07-03] MEDS ORDERED: METRONIDAZOLE 500 MG TABLET PO ONE (05:30)
[2018-07-03] MEDS ORDERED: METR-1 PO (05:32)
[2018-07-03] MEDS ORDERED: CIPR-344 PO (05:32)
[2018-07-03] MEDS ORDERED: ONDA4TAB9 PO (05:32)
[2018-07-03] MEDS ORDERED: PROMETHAZINE 25 MG/ML 1 ML AMP IVP ONE (06:10)
--- NOTE | 2018-07-03 08:39 | EKG ---
FACILITY: [facility] [place] PATIENT NAME: GRETTA BEGUM : [id number] MR: [id number] V: [id number] EXAM DATE: ORDERING PHYSICIAN: TRINY BUSBY TECHNOLOGIST: Test Reason : Blood Pressure : / mmHG Vent. Rate : 073 BPM Atrial Rate : 073 BPM P-R Int : 214 ms QRS Dur : 126 ms QT Int : 408 ms P-R-T Axes : 038 028 053 degrees QTc Int : 449 ms Sinus rhythm with 1st degree AV block Right bundle branch block Abnormal ECG When compared with ECG of 03-JUL-2018 01:34, 3rd degree AV block has been replaced by 1st degree Confirmed by Vik Mancuso ([id number]) on 07/03/2018 7:26:53 PM Referred By: Confirmed By:Vik Rinaldi
[2018-07-03 11:30] VITALS: BP 121/61
== END 2018-07-03 11:40 | disposition short-term general hospital (02) ==
LOC: ER 01:27
DX: I44.2 Atrioventricular block, complete (principal); R11.10 Vomiting, unspecified; K52.9 Noninfective gastroenteritis and colitis, unspecified; K86.9 Disease of pancreas, unspecified; G47.33 Obstructive sleep apnea (adult) (pediatric)
CPT/HCPCS: 71045; 74177; 81001; 82150; 83690; 84484; 85025; 93005; 94640; 96361; 96374; 96375; 96376; 99285; A9270; J2405; J2550; J3010; J7030; J7620; Q9967; 82040; 82247; 82310; 82374; 82435; 82565; 82947; 84075; 84132; 84155; 84295; 84450; 84460; 84520; S0119

== ENCOUNTER → 2018-07-03 | Outpatient (CLI) | payer MEDICARE ==
[~2018-07-03] MED LIST changes: +CIPR-344 PO; +GUAI1200 PO; +LUTE40CA PO; +MELA1TAB9 PO; +METR-1 PO; +OMEG100032 PO; +ONDA4TAB9 PO; +PRE5 PO; +TAMS0.4C25 PO; +[UNRECOGNIZED DRUG - CODE] OU
== END ==
LOC: AMB 11:24
PROVIDERS: ATTEND Nurse Practitioner
DX: I20.9 Angina pectoris, unspecified (principal)
CPT/HCPCS: A0425; A0426; A0888

== ENCOUNTER → 2018-07-03 | Outpatient (CLI) | payer MEDICARE | LOC: AMB 00:48 | PROVIDERS: ATTEND Nurse Practitioner | DX: R07.1 Chest pain on breathing (principal); R11.10 Vomiting, unspecified; F41.9 Anxiety disorder, unspecified | CPT/HCPCS: A0425; A0427 ==

== ENCOUNTER → 2018-08-04 | Outpatient (CLI) | payer MEDICARE ==
[~2018-08-04] MED LIST changes: +CIPR-344 PO; +GUAI1200 PO; +LUTE40CA PO; +MELA1TAB9 PO; +METR-1 PO; +OMEG100032 PO; +ONDA4TAB9 PO; +TAMS0.4C25 PO; +[UNRECOGNIZED DRUG - CODE] OU
== END ==
LOC: LAB 08:32
PROVIDERS: ATTEND Internal Medicine
DX: D3A.8 Other benign neuroendocrine tumors (principal)
CPT/HCPCS: 36415; 86316

== ENCOUNTER → 2018-09-23 | Outpatient (CLI) | payer MEDICARE ==
[~2018-09-23] MED LIST changes: -TRAZ50TA34 PO; +TRAZ50TA52 PO
[2018-09-23 10:30] LABS: PLATELET COUNT, AUTOMATED 131 K/uL (150-450)
== END ==
LOC: LAB 10:12
PROVIDERS: ATTEND Internal Medicine
DX: J44.9 Chronic obstructive pulmonary disease, unspecified (principal)
CPT/HCPCS: 36415; 82785; 85025